=== PATIENT | male | born 1940 ===

== ENCOUNTER 2017-09-15 08:02 | Inpatient (IN) | payer OTHER ==
[~2017-09-15] VITALS: Ht 170.2 cm; Wt 73.7 kg
[2017-09-15] VITALS (14 sets, daily range): BP systolic 115–157; BP diastolic 55–78; PULSE 47–69; TEMP 36.4–36.8; O2SAT 95–97; Ht 170.2 cm; Wt 73.7 kg
[2017-09-15] MEDS ORDERED: CETI10TA84 PO (08:52)
[2017-09-15] MEDS ORDERED: MAGN400T6 PO (08:52)
[2017-09-15] MEDS ORDERED: TAMS0.4C38 PO (08:52)
[2017-09-15] MEDS ORDERED: TIZA2CAP PO (08:52)
[2017-09-15] MEDS ORDERED: FLUT0.15 NAE (08:52)
[2017-09-15] MEDS ORDERED: FINA5TAB PO (08:52)
[2017-09-15] MEDS ORDERED: ATOR-22 PO (08:54)
[2017-09-15] MEDS ORDERED: ASPI81TA28 PO (08:54)
[2017-09-15] MEDS ORDERED: PRLSR20 PO (08:54)
[2017-09-15] MEDS ORDERED: TRMCR130WC (08:54)
[2017-09-15] MEDS ORDERED: ACET-1256 PO (08:54)
[2017-09-15] MEDS ORDERED: NiCARDipine HCL INJ 2.5 MG/ML 10 ML AMP ONE (09:06)
[2017-09-15] MEDS ORDERED: FENTANYL CITRATE INJ 50 MCG/1 ML 2 ML VIAL ONE (09:06)
[2017-09-15] MEDS ORDERED: HEPARIN SOD (PORCINE) 1000 UNIT/ML 10 ML VIAL ONE (09:06)
[2017-09-15] MEDS ORDERED: MIDAZOLAM HCL 1 MG/ML 2ML VIAL ONE (09:06)
[2017-09-15] MEDS ORDERED: NITROGLYCERIN/D5W 100MCG/ML 20ML SYR ONE (09:07)
[2017-09-15] MEDS ORDERED: ONDANSETRON INJ 2 MG/ML 2 ML VIAL ONE (09:50)
[2017-09-15] MEDS ORDERED: EPTIFIBATIDE 2 MG/ML 10 ML VIAL IV ONE ×2 (10:13)
[2017-09-15] MEDS ORDERED: EPTIFIBATIDE 0.75 MG/ML 75MG VIAL IV ONE (10:13)
--- NOTE | 2017-09-15 10:21 | History & Physical Bridge Note ---
H&P Re-Evaluation Bridge Note: I have examined the patient, reviewed the History & Physical and in the interval since the performance of the History & Physical I have noted the following changes of clinical significance: No changes noted
--- NOTE | 2017-09-15 10:27 | Cardiac Catheterization ---
Procedure Note Procedure Date Sep 15, 2017. Pre-Procedure Diagnosis Angina, Arrhythmia AUC Score 7 Post-Procedure Diagnosis Severe CAD Procedure(s) Performed Coronary Angiography Psychologist Dr. Oviedo Billing Machine Operator(s) None Estimated Blood Loss None Medication(s) Heparin, Versed, Lidocaine 1% Summary of Findings Severe mid RCA stenosis Hemodynamics Rest Ao: 90/60 Final Ao: 130/56 LV: N/A Recommendations PCI without planned CABG Specimens None Radiation Exposure (mGy) 1103 Contrast (mls) 78 ACC Data Cardiac Status Clinical evaluation leading to the procedure CAD Presntation: Stable angina Anginal Classification: CCS I Heart Failure: No Cardiogenic Shock w/in 24Hrs: No Cardiac Arrest w/in 24Hrs: No Imaging studies past 6 months: Yes Stress studies past 6 months: Yes Stress Echocardiogram: Yes - Negative Coronary Anatomy Dominant: Right Left Main (% Stenosis): Ostial (30), Normal Circumflex (% Stenosis): Normal RCA (% Stenosis): Mid (95) Diagnostic Physician's Name: Petar Oviedo, DO Closure Device Percutaneous Entry Location: Radial Closure Device: Radial Band
[2017-09-15] MEDS ORDERED: CLOPIDOGREL BISULFATE 300 MG TAB PO ONE (11:17)
[2017-09-15] MEDS ORDERED: ACETAMINOPHEN 325 MG TAB PO PRN (11:30)
[2017-09-15] MEDS ORDERED: LORAZEPAM INJ 0.5 MG in SYRINGE 0.75 ML IV PRN (11:30)
[2017-09-15] MEDS ORDERED: EPTIFIBATIDE BOLUS / DRIP IV ONE (11:30)
[2017-09-15] MEDS ORDERED: ATROPINE SULFATE 0.1 MG/ML 5ML SYR IV PRN (11:30)
[2017-09-15] MEDS ORDERED: ACETAMINOPHEN 500 MG TAB PO PRN (11:30)
[2017-09-15] MEDS ORDERED: ONDANSETRON INJ 2 MG/ML 2 ML VIAL IV PRN (11:30)
--- NOTE | 2017-09-15 11:37 | Procedure Note ---
Post-Mod Sedation Assessment General Date of Moderate Sedation Sep 15, 2017. Vital Signs: Vital Signs Past 12 Hours Date Time Temp Pulse Resp B/P (MAP) Pulse Ox O2 Delivery O2 Flow Rate FiO2 09/15/17 11:20 57 18 125/71 (89) 95 Room Air 09/15/17 11:05 58 18 119/78 (92) 98 Nasal Cannula 3 09/15/17 08:38 36.6 69 16 157/67 96 Room Air Review - Discharge Criteria Vital Signs Stable: Yes Alert/Oriented/Conversant: Yes Returned to Baseline Mental St: Yes Nausea Absent/Minimal: Yes Pain/Discomfort/Absent/Minimal: Yes Normal/Baseline Respirations: Yes Active Bleeding?: No Pt Received D/C Instructions: N/A Prescriptions Given: None Specific Proced. D/C Criteria Distal Pulses Present (Cardiac: Yes Groin site assessed-Card Cath: N/A Voided Prior To Discharge: N/A Discharged Patients Adult Escort/Transportation: N/A
[2017-09-15] MEDS ORDERED: EPTIFIBATIDE INJ 75 MG PREMIXED IV SCH (12:00)
[2017-09-15] MEDS: SODIUM CHLORIDE 0.9% 1000ML 1,000 ML IV SCH (12:04)
[2017-09-15 12:09] LABS: BASO % 0.2 %; BASO ABS # 0.02 K/uL (0-0.2); EOS % 1.5 %; HEMATOCRIT 41.4 % (42-52); IG% 0.3 %; LYMPH % 19.8 %; LYMPH ABS # 1.87 K/uL (1.2-3.4); MEAN CELL VOLUME 91.2 fL (80-100); MEAN CORPUSCULAR HEMOGLOBIN 30.6 pg (25-34); MONO % 9.9 %; NEUT % 68.3 %; PLATELET COUNT 209 K/uL (130-400); RED BLOOD COUNT 4.54 M/uL (4.7-6.1); WHITE BLOOD COUNT 9.45 K/uL (4.8-10.8)
--- NOTE | 2017-09-15 12:15 | Cardiac Catheterization ---
Procedure Note Procedure Date Sep 15, 2017. Pre-Procedure Diagnosis Angina, Arrhythmia (Non sustained ventricular tachycardia) AUC Score 7 Post-Procedure Diagnosis Severe CAD, Successful PCI Procedure(s) Performed Coronary Angiography, PTCA, Drug Eluting Stent Hoop Bender Tank Dr. Garces Research Instrumentation Technician(s) Sabrina Keys,STATEMENT CLERKS SUPERVISOR Estimated Blood Loss 20 ml Medication(s) Clopidogrel (600 mg PO post PCI), Fentanyl, Heparin, Integrilin, Nicardipine ( Intra-arterial and intracoronary), Versed Intravenous heparin and Integrilin were administered prior to PCI. A therapeutic activated clotting time was documented. Summary of Findings Clinical indications: Nonsustained ventricular tachycardia. Severe mid RCA stenosis documented on diagnostic cardiac catheterization by Dr. Petar Oviedo. Catheterization site: 6 [place]ian slender glide sheath inserted at time of diagnostic procedure. Interventional equipment: 6 [place] JR4 guide catheter, Medtronic [place] guidewire, Medtronic Sprinter 2.5 x 12 millimeter balloon dilatation catheter, Medtronic Resolute [place] 3.5 x 15 millimeter drug-eluting stent, Frey Findery Trek 3.75 x 12 millimeter noncompliant balloon dilatation catheter. Interventional protocol: 1 balloon inflation was performed with the sprinter balloon to the mid RCA to a pressure of 14 atmospheres for duration of 36 seconds. The balloon was inflated to 14 atmospheres to achieve complete expansion of the balloon. The stent was deployed at a pressure of 18 atmospheres for duration of 45 seconds. The entire stent was post dilated with the noncompliant balloon. Two balloon inflations were performed to a maximum pressure of 12 atmospheres and maximum duration of 17 seconds. Twelve atmospheres was the nominal inflation pressure of the balloon. Follow-up angiography was then performed from orthogonal projections with the guidewire in place and then guidewire withdrawn. The patient was hemodynamically and electrically stable throughout the procedure. He had no anginal complaints during the procedure. Hemostasis: Terumo TR band. Complications: None. Findings: Diagnostic and guiding angiography revealed a discrete 95 percent mid RCA stenosis. The proximal and mid RCA were extensively calcified. There was a long 30 percent proximal to early mid RCA stenosis. Following stent deployment and post stent deployment noncompliant balloon inflations the residual stenosis in the stent was 0-10 percent. There is a step-up and step- down prior to and distal to the stent respectively. There was a focal 10 percent narrowing in the distal segment of the stent. This was prior to the edge of the stent. Despite the noncompliant balloon inflation at this site with full expansion of the balloon there appeared to be focal non expansion of the stent at this site. This was felt to be secondary to the associated calcium with the coronary stenosis. As there was a step-up and step-down prior to and distal to the stent respectively in the remainder the stent appeared to be fully expanded was felt best not to attempt further expansion of this focal segment of the distal stent. It was felt that this could result in an edge dissection or coronary perforation. MARVIN 3 the flow was present in the RCA and its PDA and posterolateral arteries prior to intervention following intervention. At the completion of procedure there is no evidence of dissection, thrombus, perforation, or distal embolic event. Plan: The patient was given a loading dose of oral clopidogrel post PCI. He will be admitted for observation overnight. Post PCI electrocardiogram and CBC. Metabolic profile in a.m.. He will continue on dual antiplatelet therapy post PCI for at least 6 months. Aspirin therapy indefinitely. He will continue on atorvastatin. Beta-satya therapy contraindicated because of a low baseline heart rate. Angiotensin receptor satya or PAMELA-inhibitor contraindicated because of baseline low blood pressure. He will have continued cardiology follow-up with the [facility] cardiology service. Hemodynamics Rest Ao: 89/40//58 mm Hg Final Ao: 129/54/88 mm Hg LV: NA Recommendations Medical therapy and/or Counseling, PCI without planned CABG Specimens None Radiation Exposure (mGy) Total of 2932for both diagnostic and PCI procedures. Contrast (mls) Total of 145 ml Visipaque for both procedures Fluids (cc crystalloids) Total 339 milliliters for both procedures. 250 ml bolus prior to PCI. Drains None Anesthesia Start 0937 (diagnostic). End 1105 (PCI). IV Versed and fentanyl with PCI Procedural Complication(s) None Disposition PCU ACC Data Cardiac Status Clinical evaluation leading to the procedure CAD Presntation: Stable angina (Please see Dr. Oviedo's diagnostic cardiac catheterization report) Coronary Anatomy Dominant: Right (Please see Dr. Oviedo's diagnostic cardiac catheterization report for complete details) Left Ventricular Angiography EF (%): NA Diagnostic Physician's Name: Petar Oviedo, DO Status: Elective Closure Device Percutaneous Entry Location: Radial Closure Device: Radial Band Recommendations: Medical therapy and/or Counseling, PCI without planned CABG PCI Indication: Stable Angina (Nonsustained ventricular tachycardia which was felt to be ischemic in origin by consulting telegraph editor) Lesion Segment Name: Mid RCA Culprit Artery: Yes Stenosis Prior to Rx (%): 95 Chronic Total Occlusion: No IVUS: No FFR: No Pre-Procedure MARVIN Flow: 3 Previously Treated Lesion: No Lesion Complexity: Non-High/Non-C Lesion Length (mm): 12 Thrombus Present: No Bifurcation Lesion: No Guidewire Across Lesion: Yes Guidewire: Stenosis Post-Procedure (%): 0-10 Post-Procedure MARVIN Flow: 3 Device(s) Deployed: Yes Type of Device(s): Medtronic Resolute 3.5 X 15 mm FUNMILAYO Intraprocedure Events Significant Dissection: No Perforation: No
[2017-09-15 12:19] LABS: COMPLETE YES; MEAN CORPUSCULAR HGB CONC 33.6 g/dl (32-36)
[2017-09-15] MEDS ORDERED: Integrelin infusion --> STOP ORDER ONE (17:00)
[2017-09-15] MEDS: TAMSULOSIN HCL 0.4 MG CAP PO SCH (20:47)
[2017-09-15] MEDS: PANTOprazole SOD 40 MG TAB PO SCH (20:47)
[2017-09-16 04:00] VITALS: O2SAT 93
[2017-09-16 04:27] VITALS: BP 145/77; PULSE 70; TEMP 36.6; O2SAT 95
[2017-09-16] MEDS: SODIUM CHLORIDE 0.9% 1000ML 1,000 ML IV SCH (06:36)
[2017-09-16 07:16] LABS: BASO % 0.3 %; BASO ABS # 0.03 K/uL (0-0.2); COMPLETE YES; EOS % 1.7 %; HEMATOCRIT 41.6 % (42-52); IG% 0.4 %; LYMPH % 26.8 %; LYMPH ABS # 2.97 K/uL (1.2-3.4); MEAN CELL VOLUME 90.2 fL (80-100); MEAN CORPUSCULAR HEMOGLOBIN 29.9 pg (25-34); MEAN CORPUSCULAR HGB CONC 33.2 g/dl (32-36); MEAN PLATELET VOLUME 10.3 fL (7.4-10.4); MONO % 11.9 %; NEUT % 58.9 %; PLATELET COUNT 220 K/uL (130-400); RED BLOOD COUNT 4.61 M/uL (4.7-6.1)
[2017-09-16 07:41] LABS: BUN/CREATININE RATIO 16.6 (10-20); CALCIUM 8.5 mg/dl (8.5-10.1); CREATININE 0.92 mg/dl (0.60-1.40)
[2017-09-16 07:53] VITALS: BP_SYST 154; BP_SYST 164; BP_DIAS 75; BP_DIAS 83; PULSE 61; TEMP 36.8; O2SAT 96
[2017-09-16] MEDS: PANTOprazole SOD 40 MG TAB PO SCH (08:25)
[2017-09-16] MEDS: TAMSULOSIN HCL 0.4 MG CAP PO SCH (08:26)
[2017-09-16] MEDS ORDERED: CLOPIDOGREL BISULFATE 75 MG TAB PO SCH (09:00)
[2017-09-16] MEDS ORDERED: MAGNESIUM OXIDE 400 MG TAB PO SCH (09:00)
[2017-09-16] MEDS ORDERED: ASPIRIN 81 MG ECTAB PO SCH ×2 (09:00)
[2017-09-16] MEDS ORDERED: ASPIRIN 81 MG CHEW PO SCH (09:00)
[2017-09-16] MEDS ORDERED: FLUTICASONE PROPIONATE NA SPR 16 GM BTL NAE SCH (09:00)
[2017-09-16] MEDS ORDERED: FINASTERIDE 5 MG TAB PO SCH (09:00)
[2017-09-16] MEDS ORDERED: CETIRIZINE HCL 10 MG TAB PO SCH (09:00)
[2017-09-16] MEDS ORDERED: PLV75 PO (09:28)
--- NOTE | 2017-09-16 09:29 | Discharge Instructions ---
Discharge Instructions Procedure Procedure Date: Sep 16, 2017. Reason for Visit: Sustained Ventricular Tachycardia *Ivelisse To Do*. Discharge Discharge Date: Sep 16, 2017. Discharge Diagnosis: Post PCI Last Recorded Wt (Kilograms): 73.700 Anesthesia Post Anesthesia Instructions: If you have had General Anesthesia or IV Sedation: * Do not drive today. * Resume driving when surgeon permits. * Do not make important decisions or sign legal documents today. * Call surgeon for: 1. Temperature elevations greater than 101 degrees F. 2. Uncontrollable pain. 3. Excessive bleeding. 4. Persistent nausea and vomiting. 5. Medication intolerance (nausea, vomiting or rash). * For nausea and vomiting use only clear liquids such as: tea, soda, bouillon until nausea subsides, then gradually increase diet as tolerated. * If you have any concerns or questions, call your surgeon's office. If physician is unavailable and it is an emergency, call 911 or go to the nearest emergency room. Instructions Activity Recommendations: limitations Recommended Home Diet: resume previous diet Allergies: Coded Allergies: No Known Allergies (Unverified , 09/15/17) Provider Instructions ACTIVITY RECOMMENDATIONS: It is common to feel weak and fatigue for a few days. * Do not drive or operate any motorized equipment for the next three days. * Limit stair usage (2 or 3 trips a day only) for the next three days. * Do not lift anything heavier than 10 pounds for the next three days. * Do not engage in vigorous exercise or any sports for the next five days. * You may shower the day after your procedure, but do not immerse the area for three days. Cleanse the site gently with soap and water. SPECIAL CARE INSTRUCTIONS: * You may replace the pressure dressing or band-aid the morning after the procedure. * After your procedure, it is normal to have a small bruise or small lump at the site. Examine your site daily for any change in the bruise or lump, redness, swelling, drainage or numbness. Notify your doctor if any change. BLEEDING: * If there is a small amount of bleeding at the site, lie down and apply firm pressure with a clean cloth for ten minutes. When the bleeding stops, lie quietly keeping the procedure limb straight for six hours. Notify your doctor as soon as possible. * If the bleeding does not stop after ten minutes or if there is a large amount of bleeding or spurting, call 911 immediately. Continue to lie down and hold firm pressure until help arrives. SKIN IRRITATION: * You may experience some redness and/or swelling in the area where radiation was administered. If any skin irritation occurs, please contact your family physician. FOLLOW UP VISIT: Keep any scheduled doctor appointments. Follow Up Follow-up with: As scheduled with Dr. Adriana Herman Recommendations: Call your doctor if: * Temperature above 101 degrees * Pain not relieved by pain medicine ordered * There is increased drainage or redness from any incision * You have any unanswered questions or concerns. Your Doctors Instructions noted above were prepared by provider Petar Oviedo. Patient Signature Section: Patient Instructions Signature Page Timothy Cordova Patient (or Guardian) Signature/Date: I have read and understand the instructions given to me by my caregivers. Caregiver/RN/Doctor Signature/Date: The above-named patient and/or guardian has received patient instructions on this date. + Original Patient Signature Page (only) stays with chart. Please make copy for patient.
[2017-09-16 09:36] VITALS: BP 154/75; PULSE 61; TEMP 36.8; O2SAT 96
--- NOTE | 2017-09-16 09:51 | DISCHARGE SUMMARY ---
DATE OF DISCHARGE: 09/16/2017 ADMITTING DIAGNOSIS: Syncope and nonsustained ventricular tachycardia. PROCEDURES: Cardiac catheterization and coronary stent placement, right coronary artery. DISCHARGE DIAGNOSIS: 1. Coronary artery disease. 2. Syncope and cardiac arrhythmias most likely secondary to #1. HISTORY AND HOSPITAL COURSE: The patient was admitted electively for cardiac catheterization. The patient was found to have a high grade ulcerated stenosis of the mid right coronary artery. He received a drug-eluting stent delivered by Dr. Garces immediately following the cardiac catheterization. He was then admitted for overnight observation and is now ready for discharge. He has a follow-up appointment with Dr. Wright who was evaluating him for cardiac arrhythmias next week which he should keep. All his home medications will remain the same with the addition of Plavix 75 mg daily.
== END 2017-09-16 10:46 | disposition home or self-care (01) | DRG 247 ==
LOC: C.CATH 08:02 → ENRESERV 10:33 → C.2T 11:33
PROVIDERS: ADMIT Internal Medicine Interventional Cardiology; ATTEND Internal Medicine Interventional Cardiology
PROC: B211YZZ Fluoroscopy of Multiple Coronary Arteries using Other Contrast (ICD-10-PCS; 2017-09-15)
PROC: 027034Z Dilation of Coronary Artery, One Artery with Drug-eluting Intraluminal Device, Percutaneous Approach (ICD-10-PCS; principal; 2017-09-15 08:30)
DX: I25.118 Atherosclerotic heart disease of native coronary artery with other forms of angina pectoris (principal); I47.2 Ventricular tachycardia; I69.351 Hemiplegia and hemiparesis following cerebral infarction affecting right dominant side; I69.398 Other sequelae of cerebral infarction; M21.372 Foot drop, left foot; E78.5 Hyperlipidemia, unspecified; K21.9 Gastro-esophageal reflux disease without esophagitis; N40.1 Benign prostatic hyperplasia with lower urinary tract symptoms; R39.9 Unspecified symptoms and signs involving the genitourinary system; Z79.899 Other long term (current) drug therapy; Z79.82 Long term (current) use of aspirin; Z82.49 Family history of ischemic heart disease and other diseases of the circulatory system; Z82.61 Family history of arthritis; Z87.891 Personal history of nicotine dependence